=== PATIENT | female | born 1990 | race Caucasian/White ===

== ENCOUNTER 2020-08-04 12:24 | Emergency (ER) | payer OTHER ==
[2020-08-04 12:41] VITALS: BP 124/84; PULSE 59; TEMP 98.5; BMI 29.0
--- NOTE | 2020-08-04 12:51 | PDOC ---
History of Present Illness - General History Source: Patient - History of Present Illness Timing/Duration: reports: other (this am) <Julio Cesar Toussaint - Last Filed: 08/04/20 14:54> <EveliaRoxana - Last Filed: 08/12/20 13:15> - General Chief Complaint: Vaginal Bleeding Stated Complaint: 12 WKS PREGT VAG BLEED Time Seen by Provider: 08/04/20 12:48 Past History - Reproductive History Is Patient Now?: Yes - Psycho-Social/Smoking History Smoking History: Never smoked - Substance Abuse Hx (Audit-C & DAST Scrn) How often the patient has a drink containing alcohol: Never Score: In Men: 4 or > Positive; In Women: 3 or > Positive: 0 Screen Result (Pos requires Nsg. Audit-10AR): Negative In the last yr the pt used illegal drug/Rx for NonMed reason: No Score: Yes response is considered Positive: 0 Screen Result (Positive result requires Nsg. DAST-10): Negative <Julio Cesar Toussaint - Last Filed: 08/04/20 14:54> <Roxana Altamirano - Last Filed: 08/12/20 13:15> - Medical History Allergies/Adverse Reactions: Allergies Allergy/AdvReac Type Severity Reaction Status Date / Time No Known Allergies Allergy Unverified 08/04/20 12:54 Review of Systems - Review of Systems Constitutional: No: Chills, Fever ABD/GI: No: Nausea, Vomiting, Abdominal cramping : No: Dysuria <Julio Cesar Toussaint - Last Filed: 08/04/20 14:54> *Physical Exam - Vital Signs Last Vital Signs Temp Pulse Resp BP Pulse Ox 98.5 F 59 L 16 124/84 100 08/04/20 12:36 08/04/20 12:36 08/04/20 12:36 08/04/20 12:36 08/04/20 12:36 - Physical Exam General Appearance: Yes: Appropriately Dressed. No: Apparent Distress HEENT: positive: Normal Voice Neck: positive: Supple Respiratory/Chest: negative: Respiratory Distress Gastrointestinal/Abdominal: positive: Soft. negative: Tender Musculoskeletal: negative: CVA Tenderness Integumentary: positive: Dry, Warm Neurologic: positive: Fully Oriented, Alert, Normal Mood/Affect <Julio Cesar Toussaint - Last Filed: 08/04/20 14:54> - Vital Signs Last Vital Signs Temp Pulse Resp BP Pulse Ox 98.5 F 59 L 16 124/84 100 08/04/20 12:36 08/04/20 12:36 08/04/20 12:36 08/04/20 12:36 08/04/20 12:36 <Roxana Altamirano - Last Filed: 08/12/20 13:15> ED Treatment Course - ADDITIONAL ORDERS Additional order review: 08/04/20 13:20 Urine Culture - Final Urine - Urine Clean Catch NO GROWTH OBTAINED <Roxana Altamirano - Last Filed: 08/12/20 13:15> Medical Decision Making - Medical Decision Making 08/04/20 12:49 30 yo F, , ~12 weeks by dates, last US 1 month ago, no issues w/ preg so far, f/u at [facility], here w/ minimal vaginal bleed w/ ?clot this am per pt. No acute abd pain, dysuria, n/v/f/c. No trauma see exam Vaginal bleeding in 1st trimester w/ confirmed IUP Stable and well ap -T&S -UA -beta -US 08/04/20 14:55 Ultrasound with over 11 weeks IUP with heart rate documented. Blood type O+. UA w/ no LE or nit, ~300 bianca, will hold off abx and send ucx. Patient stable for discharge to follow-up with her OB <Julio Cesar Toussaint - Last Filed: 08/04/20 14:54> Discharge - Discharge Information Problems reviewed: Yes <Julio Cesar Toussaint - Last Filed: 08/04/20 14:54> <Roxana Altamirano - Last Filed: 08/12/20 13:15> - Discharge Information Clinical Impression/Diagnosis: Threatened Condition: Stable Disposition: HOME - Follow up/Referral Referrals: Gabi Olea [Primary Care Provider] - - Patient Discharge Instructions Patient Printed Discharge Instructions: Threatened Miscarriage Additional Instructions: Your ultrasound shows an over 11 weeks IUP with heart activity documented. Your beta was [phone] Your blood type is O+ Please follow-up with your OB Print Language: WELSH - Post Discharge Activity Work/Back to School Note: Back to Work
[2020-08-04 13:35] LABS: EPI CELLS 10 /uL (0-25.1); HYALINE CASTS 1 /uL (0-3.1); URINE APPEARANCE CLEAR; URINE BACTERIA 301 /uL (0-1359); URINE BILIRUBIN NEGATIVE (NEGATIVE); URINE COLOR YELLOW; URINE GLUCOSE (UA) NEGATIVE (NEGATIVE); URINE KETONE NEGATIVE (NEGATIVE); URINE LEUK ESTERASE NEGATIVE (NEGATIVE); URINE NITRITE NEGATIVE (NEGATIVE); URINE PROTEIN NEGATIVE (NEGATIVE); URINE RBC 13 /uL (0-23.9); URINE UROBILINOGEN 0.2 mg/dL (0.2-1.0); URINE WBC 5 /uL (0-25.8)
--- OUTSIDE RECORDS SUMMARY | 2020-08-04 18:43 | XMS ---
:[address] [facility] Care Team Providers Name Role Phone Ringstad, Elida Unavailable Unavailable Ringstad, Elida Unavailable Unavailable Ringstad, Elida Unavailable Unavailable Ringstad, Elida Unavailable Unavailable Ringstad, Elida Unavailable Unavailable Ringstad, Elida Unavailable Unavailable Ringstad, Elida Unavailable Unavailable Ringstad, Elida Unavailable Unavailable Ringstad, Elida Unavailable Unavailable Ringstad, Elida Unavailable Unavailable Ringstad, Elida Unavailable Unavailable Martinez, Jodi Unavailable Unavailable Martinez, Jodi Unavailable Unavailable Martinez, Jodi Unavailable Unavailable Martinez, Jodi Unavailable Unavailable Martinez, Jodi Unavailable Unavailable Martinez, Jodi Unavailable Unavailable Martinez, Jodi Unavailable Unavailable Martinez, Jodi Unavailable Unavailable Martinez, Jodi Unavailable Unavailable Martinez, Jodi Unavailable Unavailable Grgeg Lee Unavailable [phone] Olea, Gabi C Unavailable Unavailable Olea, C Unavailable Unavailable Olea, C Unavailable Unavailable Olea, C Unavailable Unavailable Olea, C Unavailable Unavailable Olea, C Unavailable Unavailable Olea, C Unavailable Unavailable Olea, C Unavailable Unavailable Olea, C Unavailable Unavailable ED STAFF PHYSICIAN Unavailable Unavailable Rasta Amador DPM Unavailable Unavailable Rasta Amador DPM Unavailable Unavailable Rasta Amador DPM Unavailable Unavailable PETER Pak Unavailable Unavailable Ringstad Unavailable Unavailable Ringstad Unavailable Unavailable Ringstad Unavailable Unavailable Ringstad Unavailable Unavailable Ringstad Unavailable Unavailable Ringstad Unavailable Unavailable Ringstad Unavailable Unavailable Ringstad Unavailable Unavailable Ringstad Unavailable Unavailable Ringstad Unavailable Unavailable Ringstad Unavailable Unavailable CARLOS MACIAS Unavailable Unavailable MD Gisel, MPH Unavailable Unavailable MD Gisel, MPH Unavailable Unavailable MD Gisel, MPH Unavailable Unavailable MD Gisel, MPH Unavailable Unavailable MD Gisel, MPH Unavailable Unavailable ED STAFF PHYSICIAN Unavailable Unavailable Aszalos, Mami Unavailable Unavailable Aszalos, Mami Unavailable Unavailable Aszalos, Mami Unavailable Unavailable Aszalos, Mami Unavailable Unavailable Aszalos, Mami Unavailable Unavailable Aszalos, Mami Unavailable Unavailable Aszalos, Mami Unavailable Unavailable Aszalos, Mami Unavailable Unavailable Aszalos, Mami Unavailable Unavailable Orin Yu MD Unavailable Unavailable Orin Yu MD Unavailable Unavailable Orin Yu MD Unavailable Unavailable Orin Yu MD Unavailable Unavailable Orin Yu MD Unavailable Unavailable Orin Yu MD Unavailable Unavailable Orin Yu MD Unavailable Unavailable Orin Yu MD Unavailable Unavailable Orin Yu MD Unavailable Unavailable Orin Yu MD Unavailable Unavailable Orin Yu MD Unavailable Unavailable Gigi, Orin MD Unavailable Unavailable Gigi, Orin MD Unavailable Unavailable Gigi, Orin MD Unavailable Unavailable Gigi, Orin MD Unavailable Unavailable ZUNASSIGNED Unavailable Unavailable ZUNASSIGNED@, Unavailable Unavailable Re-disclosure Warning The records that you are about to access may contain information from federally- assisted alcohol or drug abuse programs. If such information is present, then the following federally mandated warning applies: This information has been disclosed to you from records protected by federal confidentiality rules (42 CFR part 2). The federal rules prohibit you from making any further disclosure of this information unless further disclosure is expressly permitted by the written consent of the person to whom it pertains or as otherwise permitted by 42 CFR part 2. A general authorization for the release of medical or other information is NOT sufficient for this purpose. The Federal rules restrict any use of the information to criminally investigate or prosecute any alcohol or drug abuse patient.The records that you are about to access may contain highly sensitive health information, the redisclosure of which is protected by Article 27-F of the [facility] Public Health law. If you continue you may haveaccess to information: Regarding HIV / AIDS; Provided by facilities licensed or operated by the [facility] Office of Mental Health; or Provided by the [facility] Office for People With Developmental Disabilities. If such information is present, then the following [facility] mandated warning applies: This information has been disclosed to you from confidential records which are protected by state law. State law prohibits you from making any further disclosure of this information without the specific written consent of the person to whom it pertains, or as otherwise permitted by law. Any unauthorized further disclosure in violation of state law may result in a fine or assisted sentence or both. A general authorization for the release of medical or other information is NOT sufficient authorization for further disclosure. Allergies and Adverse Reactions Type Description Substance Reaction Status Data Source(s ) Propensity to Propensity to Propensity to NEXTG EN ([facility] adverse reactions adverse reactions adverse reactions [facility] Medical (disorder) (disorder) (disorder) Center) Encounters Encounter Providers Location Date Indications Data Source(s ) Attender: [facility] 07/20/2020 SEDA N ([facility] 04:02:[address] [facility] EDT - Center) 07/20/2020 04:02:00 PM EDT Emergency Attender: ED STAFF H 07/18/2020 [facility] PHYSICIANAttender: 06:46:00 PM Medic pr Center STAFF ED STAFF EDT - PHYSICIANAdmitter: 07/18/2020 ED STAFF 10:39:00 PM PHYSICIANReferrer: EDT ZUNASSIGNED Patient discharged. Outpatient Attender: Jodi Maier 07/18/2020 [facility] Arden koehler VelezAdmitter: Joid 05:23:00 PM EDT Medical VelezReferrer: Jodi Martinez OutpatientOFFICE/OUT Attender: [facility] 07/18/2020 [facility] PATIENT VISIT, LARY Batres MD, MPH Hiram 05:23:00 PM EDT ([facility] 07/18/2020 [facility] 05:23:00 PM EDT Medical Center) Outpatient Attender: 07/18/2020 [facility] NONISSIGNEDAdmitter: 05:19:00 PM EDT Medical ZUNASSIGNEDReferrer: Cent er [id number] ZUNASSIGNED@, Outpatient Admitter: [id number] 07/18/2020 [facility] ZUNASSIGNED@,Referre 12:00:00 AM EDT Medical r: [id number] Center ZUNASSIGNED@, Attender: [facility] 07/06/2020 STACI Molina Hiram 11:07:00 AM EDT ([facility] 07/06/2020 [facility] 11:07:00 AM EDT Medical Center) Outpatient Attender: Jodi Maier 06/23/2020 [facility] VelezAdmitter: Jodi 03:57:00 PM EDT Medical VelezReferrer: Jodi Ramos er Martinez OutpatientOFFICE/OUT Attender: [facility]gg [facility] 06/23/2020 NEXTGEN PATIENT VISIT, [facility] 03:57:00 PM EDT ( [facility] 06/23/2020 [facility] 03:57:00 PM EDT Medical Center) Outpatient 06/23/2020 [facility] 09:03:00 AM EDT Medical Center Outpatient 06/23/2020 [facility] 12:00:00 AM EDT Medical Center Attender: [facility] 12/28/2019 [facility] 01:14:00 PM EST ([facility] 12/28/2019 [facility] 01:14:00 PM EST Medical Center) Outpatient Attender: GILBERTO Maier 12/09/2019 [facility] CARLOS 01:08:00 PM EST Medical DANUTAAdmitter: Center GILBERTO CARLOS DANUTAReferrer: Jodi Martinez Outpatient Attender: Jodi Maier 12/07/2019 [facility] VelezAdmitter: Jodi 01:32:00 PM EST Medical VelezReferrer: Jodi Ramos er Martinez OutpatientWell Attender: [facility] 12/07/2019 NEXTGEN Visit, Hiram 01:32:00 PM EST ([facility],18-39years - 12/07/2019 [facility] 01:32:00 PM EST Medical Center) Outpatient 12/07/2019 [facility] 11:18:00 AM EST Medical Center Outpatient 12/07/2019 [facility] 12:00:00 AM EST Medical Center Attender: [facility] 11/30/2019 GRANT Yu MD Hiram 03:35:00 PM EST (11/30/2019 [facility] 03:35:00 PM EST Medical Center[facility] GRANT Yu MD [facility] 03:08:00 PM EST ([facility] 09/20/2019 [facility] 03:08:00 PM EST Medical Center) Outpatient 09/02/2019 [facility] 04:35:00 PM EDT Medical Center Outpatient Attender: Kalin Maier 09/02/2019 [facility] [place] 09:40:00 AM EDT Medical DPMAdmitter: Kalin Hiram [place] DPMReferrer: Kalin Amador DPM OutpatientOFFICE/OUT Attender: Gregg [facility] 09/02/2019 [facility] PATIENT VISIT, [facility] 09:40:00 AM EDT ( 09/02/2019 [facility] 09:40:00 AM EDT Medical Center) Outpatient 09/02/2019 [facility] 12:00:00 AM EDT Medical Center Outpatient 08/24/2019 [facility] 04:18:00 PM EDT Medical Center Outpatient Attender: Jodi Maier 08/24/2019 [facility] Ardenale koehler VelezAdmitter: Jodi 03:22:00 PM EDT Medical VelezReferrer: Jodi Martinez OutpatientOFFICE/OUT Attender: Gabi [facility] 08/24/2019 [facility] PATIENT VISIT, [facility] Center 03:22:00 PM EDT ( 08/24/2019 [facility] 03:22:00 PM EDT Medical Center) Outpatient 08/24/2019 [facility] 12:00:00 AM EDT Medical Center Outpatient 08/17/2019 [facility] 01:35:00 PM EDT Medical Center Outpatient 08/17/2019 [facility] 01:34:00 PM EDT Medical Center Outpatient 08/17/2019 [facility] 12:00:00 AM EDT Medical Center Attender: [facility] 07/15/2019 GRANT Yu MD Hiram 02:21:00 PM EDT ([facility] 07/15/2019 [facility] 02:21:00 PM EDT Medical Center) Attender: Gabi [facility] 07/03/2019 [facility] 10:35:00 AM EDT ([facility] 07/03/2019 [facility] 10:35:00 AM EDT Medical Center) Outpatient 06/29/2019 [facility] 11:50:00 AM EDT Medical Center Outpatient 06/29/2019 [facility] 12:00:00 AM EDT Medical Center Outpatient Attender: PAUL Maier 05/21/2019 [facility] GREEN PAUL 08:54:00 AM EDT [facility] vanesa DAdmitter: PAULDOMINIQUE MILLER DReferrer: PAUL Pak Outpatient Attender: Jodi Maier 05/04/2019 [facility] bakariale VelezAdmitter: Jodi 03:41:00 PM EDT Medical VelezReferrer: Jodi preciado Martinez OutpatientOFFICE/OUT Attender: Gabi Olea [facility] 05/04/2019 [facility] PATIENT VISIT, [facility] Center 03:41:00 PM EDT ( [facility] 05/04/2019 [facility] 03:41:00 PM EDT Medical Center) Outpatient 05/04/2019 [facility] 09:00:00 AM EDT Medical Center Outpatient 05/04/2019 [facility] 12:00:00 AM EDT Medical Center Outpatient 04/27/2019 [facility] 03:44:00 PM EDT Medical Center Outpatient 04/27/2019 [facility] 12:00:00 AM EDT Medical Center Outpatient 04/22/2019 [facility] 11:28:00 AM EDT Medical Center Outpatient 04/22/2019 [facility] 12:00:00 AM EDT Medical Center Attender: [facility] 04/19/2019 [facility] 02:02:00 PM EDT ([facility] 04/19/2019 [facility] 02:02:00 PM EDT Medical Center) Outpatient 04/17/2019 [facility] 11:47:00 AM EDT Medical Center Outpatient 04/17/2019 [facility] 12:00:00 AM EDT Medical Center Outpatient H 04/13/2019 [facility] 04:31:00 PM EDT Medical Center Outpatient 04/13/2019 [facility] 04:28:00 PM EDT Medical Center Outpatient 04/13/2019 [facility] 12:00:00 AM EDT Medical [facility] ST[facility]I PIN[facility] 11:42:00 AM EDT (04/09/2019 [facility] 11:42:00 AM EDT Medical Center) Outpatient Attender: Jodi Maier 04/06/2019 [facility] VelezAdmitter: Jodi 03:10:00 PM EDT Medical VelezReferrer: Jodi Martinez OutpatientOFFICE/OUT Attender: Gabi [facility] 04/06/2019 NEXTGEN PATIENT VISIT, [facility] 03:10:00 PM EDT ( [facility] 04/06/2019 [facility] 03:10:00 PM EDT Medical Center) Outpatient 04/06/2019 [facility] 01:32:00 PM EDT Medical Center Outpatient 04/06/2019 [facility] 12:00:00 AM EDT Medical Center Attender: [facility] 03/18/2019 N EXTGEN Hiram 04:46:00 PM EDT ([facility] 03/18/2019 [facility] 04:46:00 PM EDT Medical Center) Outpatient 03/10/2019 [facility] 02:56:00 PM EDT Medical Center Outpatient Attender: Elida Maier 03/10/2019 [facility] Makidmitter: 10:28:00 AM EDT [facility] RingstadReferrer: Elida Molina OutpatientOFFICE/OUT Attender: [facility] 03/10/2019 [facility] PATIENT VISIT, [facility] 10:28:00 AM EDT ( [facility] 03/10/2019 [facility] 10:28:00 AM EDT Medical Center) Outpatient 03/10/2019 [facility] 12:00:00 AM EDT Medical Center 03/09/2019 [facility] 02:55:00 PM EDT Medical Hiram Medications Medication Brand Start Product Dose Route Administrative Pharm[facility] Indications Reaction Description Data Name Date Form Instructions Instructions Source(s) Cyclobenzap cyclob ORAL complet take 1 NEXTGEN rine enzapr 2020 {tabl ed tablet by ([facility] hydrochlori ine 10 12:00: et} oral rout e 2 Zia de 10 MG mg 00 AM times every Med ical Oral Tablet tablet EST day Hiram ) cyclobenzap rine 10 mg tablet Folic Acid folic .00 ORAL complet take 1 N EXTGEN 0.4 MG Oral acid 2020 {tabl ed tablet by (S aint Tablet 400 12:00: et} oral route Michael hs folic acid mcg 00 AM every day Med ical 400 mcg tablet EST Center) tablet Menthol 0.1 Asperc complet apply NEXTGEN MG/MG elis 2018 ed affected ([facility] Topical Gel Heat 12:00: area bid Erin sephs Aspercreme 10 % 00 AM Medical Heat 10 % topica EDT Center) topical gel l gel Famotidine famoti ORAL complet take 1 NEXTGEN 40 MG Oral dine 2018 {tabl ed tablet by (Sa int Tablet 40 mg 12:00: et} oral route Delmer phs famotidine tablet 00 AM every day a t Medical 40 mg EDT bedtime Center) tablet Tretinoin tretin complet apply by NEXTGEN 0.5 MG/ML oin 2018 L ed topical ([facility] Topical 0.05 % 12:00: route every Zia Cream topica 00 AM day to the Medic al tretinoin l EDT affected Center ) 0.05 % cream area(s) at topical bedtime cream Clindamycin clinda complet apply by NEXTGEN 10 MG/ML mycin 2018 ed topical ([facility] Topical 1 % 12:00: route every Erin sephs Foam topica 00 AM day to the Medica l clindamycin l foam EDT affected Ce nter) 1 % topical area(s) of foam the face after washing with a mild soap Folic Acid folic ORAL complet take 1 N EXTGEN 0.4 MG Oral acid 2018 {tbl} ed tablet by (S aint Tablet 400 12:00: oral route Michael hs folic acid mcg 00 AM every day Med ical 400 mcg tablet EDT Center) tablet medroxyprog Depo-P INTRAM complet 1 ML NEXTGEN esterone rovera 2019 mL USCULA ed medroxyproge ([facility] acetate 150 150 12:00: R sterone [facility] ephs MG/ML mg/mL 00 AM acetate 150 Medic al Injectable intram EDT MG/ML Hiram ) Suspension uscula Injection [Depo-Prove r [Depo-Head Worker ra] suspen a] Depo-Head Worker vickey a 150 mg/mL intramuscul ar suspension Clindamycin clinda complet apply by NEXTGEN 10 MG/ML mycin 2019 ed topical ([facility] Topical 1 % 12:00: route every Erin sephs Foam topica 00 AM day to the Medica l clindamycin l foam EDT affected Ce nter) 1 % topical area(s) of foam the face after washing with a mild soap Ibuprofen ibupro take 1 N EXTGEN 600 MG Oral fen 2019 ed tablet by (Sa int Tablet 600 mg 12:00: oral route 3 J osephs ibuprofen tablet 00 AM times every Medical 600 mg EDT day with Center) tablet food as needed for pain Loratadine lorata .00 ORAL complet take 1 NEXTGEN 10 MG Oral dine 2019 {tabl ed tablet by (Sa int Tablet 10 mg 12:00: et} oral route Delmer phs loratadine tablet 00 AM every day M edical 10 mg EDT Center) tablet Insurance Providers Payer name Policy type Policy ID Covered Covered green party's Policy P melania / Coverage green party ID relationship to Garcia Inf ormation type garcia BRETT [id number] SP [id number] 500 ESSENTIAL PLAN 3 4 O BRETT O [id number] 01 [id number] 500 ESSENTIALS-CO MMERCIAL Problems, Conditions, and Diagnoses Code Display Name Description Problem Type Effective Data Dates Source(s) Z3A.09 9 weeks gestation of 9 WEEKS GESTATION OF Diagnosis 07/18 06:46:00 PM [facility] O20.0 Threatened THREATENED Diagnosis 020 [facility] 06:46:00 PM [facility] O26.851 Spotting SPOTTING Diagnosis 07/18/2020 complicating COMPLICATING 06:46:00 PM Zia , first , FIRST EDT Sc dical trimester TRIMESTER Center N93.9 Abnormal uterine and ABNORMAL UTERINE AND Diagnosis 07/18 [facility] vaginal bleeding, VAGINAL BLEEDING, 05:23:00 PM [facility] unspecified UNSPECIFIED [facility] Medical Hiram Z32.01 Encounter for ENCOUNTER FOR Diagnosis 06/23/2020 test, TEST, 03:57:00 PM [facility] ephs result positive RESULT POSITIVE EDT [facility] M54.5 Low back pain LOW BACK PAIN Diagnosis 12/09/2019 [facility] 01:08:[address] [facility] Z71.89 Other specified OTHER SPECIFIED Diagnosis 12/07/2019 Jana t counseling COUNSELING 01:32:[address] [facility] Z23 Encounter for ENCOUNTER FOR Diagnosis 12/07/2019 [facility] immunization IMMUNIZATION 01:32:[address] [facility] J06.9 Acute upper ACUTE UPPER Diagnosis 12/07/2019 [facility] respiratory RESPIRATORY 01:32:00 PM [facility] infection, INFECTION, EST Medical unspecified UNSPECIFIED Center N91.2 Amenorrhea, AMENORRHEA, Diagnosis 12/07/2019 [facility] unspecified UNSPECIFIED 01:32:[address] [facility] M54.9 Dorsalgia, DORSALGIA, Diagnosis 12/07/2019 [facility] unspecified UNSPECIFIED 01:32:[address] [facility] Z12.4 Encounter for ENCOUNTER FOR Diagnosis 12/07/2019 [facility] screening for SCREENING FOR 01:32:00 PM [facility] malignant neoplasm MALIGNANT NEOPLASM EST Medical of cervix OF CERVIX Center M79.674 Pain in right toe(s) PAIN IN RIGHT TOE(S) Diagnosis 09/02 [facility] 09:40:00 AM [facility] M79.671 Pain in right foot PAIN IN RIGHT FOOT Diagnosis 9 [facility] 09:40:00 AM [facility] Z71.3 Dietary counseling DIETARY COUNSELING Diagnosis 9 [facility] and surveillance AND SURVEILLANCE 03:22:00 PM [facility] Z68.30 Body mass index BODY MASS INDEX Diagnosis 08/24/2019 Jana t (BMI) 30.0-30.9, (BMI) 30.0-30.9, 03:22:00 PM [facility] adult ADULT [facility] L70.9 Acne, unspecified ACNE, UNSPECIFIED Diagnosis 08/24/2019 [facility] 03:22:00 PM [facility] K21.9 Gastro-esophageal GASTRO-ESOPHAGEAL Diagnosis 08/24/2019 [facility] reflux disease REFLUX DISEASE 03:22:00 PM Michael hs without esophagitis WITHOUT ESOPHAGITIS [facility] 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 NERVES AND 08:54:00 AM [facility] AUTONM NERVOUS SYS, EDT Me dical nervous system, UNSP Center unspecified Z30.09 Encounter for other ENCOUNTER FOR OTH Diagnosis 9 general counseling GENERAL CNSL AND 03:10:00 PM Zia and advice on ADVICE ON EDT Medical contraception CONTRACEPTION Center F43.21 Adjustment disorder ADJUSTMENT DISORDER Diagnosis with depressed mood WITH DEPRESSED MOOD 03:10:0 0 PM [facility] Z11.4 Encounter for ENCOUNTER FOR Diagnosis 03/10/2019 screening for human SCREENING FOR HUMAN 10:28:0 0 AM [facility] immunodeficiency IMMUNODEFICIENCY EDT Sc dical virus [HIV] VIRUS Center Z00.01 Encounter for ENCOUNTER FOR Diagnosis 03/10/2019 [facility] general adult GENERAL ADULT 10:28:00 AM [facility] medical examination MEDICAL EXAM W EDT M edical with abnormal ABNORMAL FINDINGS Cent er findings J30.2 Other seasonal OTHER SEASONAL Diagnosis 03/10/2019 [facility] allergic rhinitis ALLERGIC RHINITIS 10:28:00 AM [facility] H93.11 Tinnitus, right ear TINNITUS, RIGHT EAR Diagnosis 10:28:00 AM [facility] Diagnosis NEXTGEN ([facility]) Diagnosis NEXTGEN ([facility]) Diagnosis NEXTGEN ([facility]) Diagnosis [id number] ([facility]) Surgeries/Procedures Procedure Description Date Indications Data Source(s) OFFICE/OUTPATIENT 07/18/2020 [facility] (Ale zeng [facility] VISIT, EST 12:00:00 AM EDT - Medical Ce nter) 07/18/2020 12:00:00 AM EDT OFFICE/OUTPATIENT 06/23/2020 [facility]Ale zeng [facility] VISIT, EST 12:00:00 AM EDT - Medical Ce nter) 06/23/2020 12:00:00 AM EDT URINE TEST 06/23/2020 NEXTGEN ([facility] 12:00:00 AM EDT - Medical Ce nter) 06/23/2020 12:00:00 AM EDT Well Visit, 12/07/2019 [facility] ([facility] Est,18-39years 12:00:00 AM EST - Medical Center) 12/07/2019 12:00:00 AM EST SPECIMEN HANDLING 12/07/2019 [facility] (Ale zeng [facility] 12:00:00 AM EST - Medical Ce nter) 12/07/2019 12:00:00 AM EST URINE TEST 12/07/2019 [facility] ([facility] 12:00:00 AM EST - Medical Ce nter) 12/07/2019 12:00:00 AM EST OFFICE/OUTPATIENT 09/02/2019 NEXTGEN (S aint [facility]ia VISIT, EST 12:00:00 AM EDT - Medical Ce nter) 09/02/2019 12:00:00 AM EDT OFFICE/OUTPATIENT 08/24/2019 NEXTGEN (S aint [facility]ia VISIT, EST 12:00:00 AM EDT - Medical Ce nter) 08/24/2019 12:00:00 AM EDT OFFICE/OUTPATIENT 05/04/2019 NEXTGEN (S aint [facility]ia VISIT, EST 12:00:00 AM EDT - Medical Ce nter) 05/04/2019 12:00:00 AM EDT OFFICE/OUTPATIENT 04/06/2019 NEXTGEN (S aint [facility] VISIT, EST 12:00:00 AM EDT - Medical Ce nter) 04/06/2019 12:00:00 AM EDT OFFICE/OUTPATIENT 03/10/2019 NEXTGEN (S aint [facility]ia VISIT, NEW 12:00:00 AM EDT - Medical Ce nter) 03/10/2019 12:00:00 AM EDT Results ID Date Data Source [id number] 07/18/2020 08:15:00 PM EDT [facility] 0400 Name Value Range Interpretation Description Data Sup porting Code Source(s) Document(s ) Hemoglobin 12.3-16. <content [facility] [Mass/volume] in 0 styleCode="Bold Zia Blood ">Hemoglobin Medical </content>13.4 Center G/DL<content styleCode="Ital ics"> (12.3-16.0 G/DL)</content> Erythrocytes 4.0-5.1 <content [facility] [#/volume] in styleCode="Bold Zia Blood by ">Red Blood Medical Automated count Cell Count Center </content>4.42 MCUMM<content styleCode="Ital ics"> (4.0-5.1 MCUMM)</content > Leukocytes 4.4-11.0 <content [facility] [#/volume] in styleCode="Bold Zia Blood by ">White Blood Medical Automated count Cell Count Center </content>10.56 KCUMM<content styleCode="Ital ics"> (4.4-11.0 KCUMM)</content > Erythrocyte mean 80.0-100 <content [facility] corpuscular .0 styleCode="Bold Zia volume [Entitic ">Mean Medical volume] by Corpuscular Center Automated count Volume </content>89.6 FL<content styleCode="Ital ics"> (80.0-100.0 FL)</content> Erythrocyte mean 26.0-34. <content [facility] corpuscular 0 styleCode="Bold Zia hemoglobin ">Mean Medical [Entitic mass] Corposcular Center by Automated Hemoglobin count </content>30.3 PG<content styleCode="Ital ics"> (26.0-34.0 PG)</content> Hematocrit 36.0-46. <content [facility] [Volume 0 styleCode="Bold Zia Fraction] of ">Hematocrit Medical Blood by </content>39.6 Center Automated count %<content styleCode="Ital ics"> (36.0-46.0 %)</content> Erythrocyte mean 32.0-37. <content [facility] corpuscular 0 styleCode="Bold Zia hemoglobin ">Mean Corpus. Medical concentration Hgb Center [Mass/volume] by Concentration Automated count (MCHC) </content>33.8 G/DL<content styleCode="Ital ics"> (32.0-37.0 G/DL)</content> Platelet mean 8.0-11.0 <content Saint volume [Entitic styleCode="Bold Zia volume] in Blood ">Mean Platelet Medical by Automated Volume Center count </content>9.9 FL<content styleCode="Ital ics"> (8.0-11.0 FL)</content> Platelets 130-400 <content Saint [#/volume] in styleCode="Bold Zia Blood by ">Platelet Medical Automated count Count Center </content>381 KCUMM<content styleCode="Ital ics"> (130-400 KCUMM)</content > UNK 0 <content Saint styleCode="Bold Zia ">Nucleated Red Medical Blood Cell Center </content>0.0 /100<content styleCode="Ital ics"> (0 /100)</content> Erythrocyte 11.5-14. <content Saint distribution 5 styleCode="Bold Zia width [Ratio] by ">Red Cell Medical Automated count Distribution Center Width </content>12.0 %<content styleCode="Ital ics"> (11.5-14.5 %)</content> UNK 0.0 <content Saint styleCode="Bold Zia ">Nucleated Red Medical Blood Cell Center Count </content>0.00 KCUMM<content styleCode="Ital ics"> (0.0 KCUMM)</content > ID Date Data Source GFR(Creatinine).[id number] 07/18/2020 08:15:00 PM EDT [facility] 0-0400 Name Value Range Interpretation Code Description Data Edilia rce(s) Supporting Document(s ) UNK > 60 <content [facility] styleCode="Bold"> Medical Cent er EGFR </content>198 GFR<content styleCode="Italic s"> (> 60 GFR)</content> ID Date Data Source BMP.[id number] 07/18/2020 08:15:00 PM EDT [facility] Name Value Range Interpretation Description Data Sup porting Code Source(s) Document(s ) Sodium 137-145 Below low normal <content Saint [Moles/volume] styleCode="Eufemia Zia in Serum or d">Sodium Medical Plasma </content>133 Center MEQ/L L<content styleCode="Khadijah lics"> (137-145 MEQ/L)</conten t> Chloride 98-107 <content Saint [Moles/volume] styleCode="Eufemia Zia in Serum or d">Chloride Medical Plasma </content>102 Center MEQ/L<content styleCode="Khadijah lics"> (98-107 MEQ/L)</conten t> UNK 7-17 <content Saint styleCode="Eufemia Zia d">BUN Medical </content>8 Center MG/DL<content styleCode="Khadijah lics"> (7-17 MG/DL)</conten t> Carbon 22-30 <content Saint dioxide, total styleCode="Eufemia Zia [Moles/volume] d">Carbon Medical in Serum or Dioxide Center Plasma </content>22 MEQ/L<content styleCode="Khadijah lics"> (22-30 MEQ/L)</conten t> Potassium 3.5-5.3 <content Saint [Moles/volume] styleCode="Eufemia Marcelos in Serum or d">Potassium Medical Plasma </content>4.3 Center MEQ/L<content styleCode="Khadijah lics"> (3.5-5.3 MEQ/L)</conten t> Calcium 8.4-10.2 <content Saint [Mass/volume] styleCode="Eufemia Marcelos in Serum or d">Calcium Medical Plasma </content>9.8 Center MG/DL<content styleCode="Khadijah lics"> (8.4-10.2 MG/DL)</conten t> Creatinine 0.5-1.3 Below low normal <content Saint [Mass/volume] styleCode="Eufemia Lizarraga in Serum or d">Creatinine Medical Plasma </content>0.4 Center MG/DL L<content styleCode="Khadijah lics"> (0.5-1.3 MG/DL)</conten t> UNK > 60 <content Saint styleCode="Eufemia Lizarraga d">EGFR Medical </content>198 Center GFR<content styleCode="Khadijah lics"> (> 60 GFR)</content> Glucose 74-106 <content Saint [Mass/volume] styleCode="Eufemia Lizarraga in Serum or d">Glucose Medical Plasma </content>87 Center MG/DL<content styleCode="Khadijah lics"> (74-106 MG/DL)</conten t> ID Date Data Source [id number] 06/12/2020 10:02:00 AM EDT [facility] Name Value Range Interpretation Code Description Data Edilia rce(s) Supporting Document(s ) SARS-COV-2 [facility] RESP [facility]ostics QL MINDY+PROBE This lab was ordered by [facility] and reported by [facility]. ID Date Data Source Urinalysis.[id number] 03/12/2019 09:16:00 AM EDT Juan Pablo [facility] 0 Name Value Range Interpretation Description Data Sup porting Code Source(s) Document(s ) UNK CLEAR <content Saint styleCode="Eufemia Zia d">Urine Medical Clarity Center </content>ELIZA R <content styleCode="Khadijah lics"> (CLEAR )</content> Color of Urine YELLOW <content Saint styleCode="Eufemia Zia d">Color, Medical Urine Center </content>YELL OW <content styleCode="Khadijah lics"> (YELLOW )</content> Glucose NEGATIVE <content Saint [Mass/volume] styleCode="Eufemia Zia in Urine by d">Urine Medical Test strip Glucose Center </content>NEGA TIVE MG/DL<content styleCode="Khadijah lics"> (NEGATIVE MG/DL)</conten t> UNK NEGATIVE <content Saint styleCode="Eufemia Zia d">Urine Medical Bilirubin Center </content>NEGA TIVE <content styleCode="Khadijah lics"> (NEGATIVE )</content> Specific 1.015-1.02 <content Saint gravity of 5 styleCode="Eufemia Zia Urine by Test d">Urine Medical strip Specific Center [place] </content>1.02 0 <content styleCode="Khadijah lics"> (1.015-1.025 )</content> Ketones NEGATIVE <content Saint [Mass/volume] styleCode="Eufemia Zia in Urine by d">Urine Medical Test strip Ketone Center </content>NEGA TIVE MG/DL<content styleCode="Khadijah lics"> (NEGATIVE MG/DL)</conten t> Urobilinogen 0.2-1.0 <content Saint [Units/volume] styleCode="Eufemia Zia in Urine by d">Urine Medical Test strip Urobilinogen Center </content>0.2 MG/DL<content styleCode="Khadijah lics"> (0.2-1.0 MG/DL)</conten t> Hemoglobin NEGATIVE <content Saint [Presence] in styleCode="Eufemia Zia Urine by Test d">Urine Blood Medical strip </content>NEGA Center TIVE <content styleCode="Khadijah lics"> (NEGATIVE )</content> Protein NEGATIVE <content Saint [Mass/volume] styleCode="Eufemia Lizarraga in Urine by d">Urine Medical Test strip Protein Center </content>NEGA TIVE MG/DL<content styleCode="Khadijah lics"> (NEGATIVE MG/DL)</conten t> pH of Urine by 4.5-8.0 <content Saint Test strip styleCode="Eufemia Marcelos d">Urine pH Medical </content>6.0 Center <content styleCode="Khadijah lics"> (4.5-8.0 )</content> Nitrite NEGATIVE <content Saint [Presence] in styleCode="Eufemia Lizarraga Urine by Test d">Urine Medical strip Nitrite Center </content>NEGA TIVE <content styleCode="Khadijah lics"> (NEGATIVE )</content> Leukocyte NEGATIVE <content Saint esterase styleCode="Eufemia Lizarraga [Presence] in d">Urine Medical Urine by Test Leukocyte Center strip </content>NEGA TIVE <content styleCode="Khadijah lics"> (NEGATIVE )</content> ID Date Data Source Liver 03/12/2019 09:16:00 AM EDT [facility] Profile.[id number] Name Value Range Interpretation Description Data Sup porting Code Source(s) Document(s ) Bilirubin.total 0.2-1.3 <content Saint [Mass/volume] in styleCode="Bold"> Michael hs Serum or Plasma Bilirubin Total Medical </content>0.5 Center MG/DL<content styleCode="Italic s"> (0.2-1.3 MG/DL)</content> Alanine 7-30 Above high <content Saint aminotransferase normal styleCode="Bold"> Michael hs [Enzymatic Alanine Medical activity/volume] Aminotransferase Center in Serum or Plasma (ALT) </content>45 IU/L H<content styleCode="Italic s"> (7-30 IU/L)</content> Albumin 3.5-5.0 <content Saint [Mass/volume] in styleCode="Bold"> Michael hs Serum or Plasma Albumin Medical </content>4.6 Center G/DL<content styleCode="Italic s"> (3.5-5.0 G/DL)</content> Aspartate 14-36 <content Saint aminotransferase styleCode="Bold"> Michael hs [Enzymatic Aspartate Medical activity/volume] Aminotransferase Center in Serum or Plasma (AST) </content>34 IU/L<content styleCode="Italic s"> (14-36 IU/L)</content> Alkaline 38-126 <content Saint phosphatase styleCode="Bold"> Zia [Enzymatic Alkaline Medical activity/volume] Phosphatase (ALP) Cente r in Serum or Plasma </content>80 IU/L<content styleCode="Italic s"> (38-126 IU/L)</content> ID Date Data Source LIPID.[id number] 03/12/2019 09:16:00 AM EDT [facility] Name Value Range Interpretation Description Data Sup porting Code Source(s) Document(s ) Triglyceride < 150 Above high normal <content Saint [Mass/volume] in styleCode="Eufemia Marcelos Serum or Plasma d">Triglycerid [facility] </content>163 MG/DL H<content styleCode="Khadijah lics"> (< 150 MG/DL)</conten t> Cholesterol -<200 <content Saint [Mass/volume] in styleCode="Eufemia Marcelos Serum or Plasma d">Cholesterol Medical </content>172 Center MG/DL<content styleCode="Khadijah lics"> (-<200 MG/DL)</conten t> UNK > 60 Below low normal <content Saint styleCode="Eufemia Zia d">HDL- Medical Cholesterol Center </content>34 MG/DL L<content styleCode="Khadijah lics"> (> 60 MG/DL)</conten t> UNK < 100 Above high normal <content Saint styleCode="Eufemia Zia d">LDL-Cholest Medical liza Center </content>105 MG/DL H<content styleCode="Khadijah lics"> (< 100 MG/DL)</conten t> ID Date Data Source Hormones.[id number] 03/12/2019 09:16:00 AM EDT Jana alvarez [facility] Center Name Value Range Interpretation Description Data Sup porting Code Source(s) Document(s ) Thyrotropin 0.465-4. <content Saint [Units/volume] 68 styleCode="Eufemia Zia in Serum or d">Thyroid Medical Plasma by Stimulating Center Detection Hormone limit <= 0.05 </content>2.21 mIU/L MIU/L<content styleCode="Khadijah lics"> (0.465-4.68 MIU/L)</conten t> ID Date Data Source HematologyRou.[id number] 03/12/2019 09:16:00 AM EDT Juan Pablo [facility] 0400 Name Value Range Interpretation Description Data Sup porting Code Source(s) Document(s ) Erythrocytes 4.0-5.1 <content Saint [#/volume] in styleCode="Bold Zia Blood by ">Red Blood Medical Automated count Cell Count Center </content>4.22 MCUMM<content styleCode="Ital ics"> (4.0-5.1 MCUMM)</content > Leukocytes 4.4-11.0 <content Saint [#/volume] in styleCode="Bold Zia Blood by ">White Blood Medical Automated count Cell Count Center </content>5.94 KCUMM<content styleCode="Ital ics"> (4.4-11.0 KCUMM)</content > Hemoglobin 12.3-16. <content Saint [Mass/volume] in 0 styleCode="Bold Zia Blood ">Hemoglobin Medical </content>12.8 Center G/DL<content styleCode="Ital ics"> (12.3-16.0 G/DL)</content> Erythrocyte mean 26.0-34. <content Saint corpuscular 0 styleCode="Bold Zia hemoglobin ">Mean Medical [Entitic mass] Corposcular Center by Automated Hemoglobin count </content>30.3 PG<content styleCode="Ital ics"> (26.0-34.0 PG)</content> Erythrocyte mean 80.0-100 <content Saint corpuscular .0 styleCode="Bold Zia volume [Entitic ">Mean Medical volume] by Corpuscular Center Automated count Volume </content>93.1 FL<content styleCode="Ital ics"> (80.0-100.0 FL)</content> Erythrocyte mean 32.0-37. <content Saint corpuscular 0 styleCode="Bold Zia hemoglobin ">Mean Corpus. Medical concentration Hgb Center [Mass/volume] by Concentration Automated count (MCHC) </content>32.6 G/DL<content styleCode="Ital ics"> (32.0-37.0 G/DL)</content> Hematocrit 36.0-46. <content Saint [Volume 0 styleCode="Bold Zia Fraction] of ">Hematocrit Medical Blood by </content>39.3 Center Automated count %<content styleCode="Ital ics"> (36.0-46.0 %)</content> Platelet mean 8.0-11.0 <content Saint volume [Entitic styleCode="Bold Zia volume] in Blood ">Mean Platelet Medical by Automated Volume Center count </content>10.8 FL<content styleCode="Ital ics"> (8.0-11.0 FL)</content> Erythrocyte 11.5-14. <content Saint distribution 5 styleCode="Bold Zia width [Ratio] by ">Red Cell Medical Automated count Distribution Center Width </content>12.5 %<content styleCode="Ital ics"> (11.5-14.5 %)</content> Platelets 130-400 <content Saint [#/volume] in styleCode="Bold Zia Blood by ">Platelet Medical Automated count Count Center </content>373 KCUMM<content styleCode="Ital ics"> (130-400 KCUMM)</content > UNK 0.0 <content Saint styleCode="Bold Zia ">Nucleated Red Medical Blood Cell Center Count </content>0.00 KCUMM<content styleCode="Ital ics"> (0.0 KCUMM)</content > UNK 0 <content Saint styleCode="Bold Zia ">Nucleated Red Medical Blood Cell Center </content>0.0 /100<content styleCode="Ital ics"> (0 /100)</content> ID Date Data Source GFR(Creatinine).[id number] 03/12/2019 09:16:00 AM EDT [facility] 0-0400 Name Value Range Interpretation Code Description Data Edilia rce(s) Supporting Document(s ) UNK > 60 <content Saint [facility] styleCode="Bold"> Medical Cent er EGFR </content>126 GFR<content styleCode="Italic s"> (> 60 GFR)</content> ID Date Data Source ChemistrySpecia.[id number] 03/12/2019 09:16:00 AM EDT [facility] 0-0400 Name Value Range Interpretation Code Description Data Supporting Source(s) Document(s ) Folate > 3.0 <content [facility] [Mass/volum styleCode="Bold Medical e] in Serum ">Folic Acid Center or Plasma </content>> 20.0 NG/ML<content styleCode="Ital ics"> (> 3.0 NG/ML)</content > ID Date Data Source [facility].[id number] 03/12/2019 09:16:00 AM EDT [facility] -0400 Name Value Range Interpretation Description Data Sup porting Code Source(s) Document(s ) UNK >= 1.0 <content [facility] styleCode="Bold Medical ">AG Ratio Center </content>1.4 <content styleCode="Ital ics"> (>= 1.0 )</content> Folate > 3.0 <content Saint Zia [Mass/volum styleCode="Bold Medical e] in Serum ">Folic Acid Center or Plasma </content>> 20.0 NG/ML<content styleCode="Ital ics"> (> 3.0 NG/ML)</content > Protein 6.3-8.2 <content Saint Zia [Mass/volum styleCode="Bold Medical e] in Serum ">Total Protein Center or Plasma </content>7.9 G/DL<content styleCode="Ital ics"> (6.3-8.2 G/DL)</content> UNK 4.2-5.8 <content [facility] styleCode="Bold Medical ">Hemoglobin Center A1C </content>5.4 %<content styleCode="Ital ics"> (4.2-5.8 %)</content> UNK 2.3-3.5 <content Saint Zia styleCode="Bold Medical ">Globulin Center </content>3.3 G/DL<content styleCode="Ital ics"> (2.3-3.5 G/DL)</content> ID Date Data Source [facility].[id number] 03/12/2019 09:16:00 AM EDT [facility] Center Name Value Range Interpretation Description Data Sup porting Code Source(s) Document(s ) Sodium 137-145 <content Saint [Moles/volume] in styleCode="Bold"> Delmer phs Serum or Plasma Sodium Medical </content>142 Center MEQ/L<content styleCode="Italic s"> (137-145 MEQ/L)</content> Carbon dioxide, 22-30 <content Saint total styleCode="Bold"> Zia [Moles/volume] in Carbon Dioxide Medical Serum or Plasma </content>26 Center MEQ/L<content styleCode="Italic s"> (22-30 MEQ/L)</content> Creatinine 0.5-1.3 <content Saint [Mass/volume] in styleCode="Bold"> Michael hs Serum or Plasma Creatinine Medical </content>0.6 Center MG/DL<content styleCode="Italic s"> (0.5-1.3 MG/DL)</content> UNK 7-17 <content Saint styleCode="Bold"> Zia BUN </content>11 Medical MG/DL<content Center styleCode="Italic s"> (7-17 MG/DL)</content> Potassium 3.5-5.3 <content Saint [Moles/volume] in styleCode="Bold"> Delmer phs Serum or Plasma Potassium Medical </content>4.2 Center MEQ/L<content styleCode="Italic s"> (3.5-5.3 MEQ/L)</content> Chloride 98-107 <content Saint [Moles/volume] in styleCode="Bold"> Delmer phs Serum or Plasma Chloride Medical </content>103 Center MEQ/L<content styleCode="Italic s"> (98-107 MEQ/L)</content> Alanine 7-30 Above high <content Saint aminotransferase normal styleCode="Bold"> Michael hs [Enzymatic Alanine Medical activity/volume] Aminotransferase Center in Serum or Plasma (ALT) </content>45 IU/L H<content styleCode="Italic s"> (7-30 IU/L)</content> Calcium 8.4-10. <content [facility] [Mass/volume] in 2 styleCode="Bold"> Michael hs Serum or Plasma Calcium Medical </content>9.9 Center MG/DL<content styleCode="Italic s"> (8.4-10.2 MG/DL)</content> Glucose 74-106 <content Saint [Mass/volume] in styleCode="Bold"> Michael hs Serum or Plasma Glucose Medical </content>88 Center MG/DL<content styleCode="Italic s"> (74-106 MG/DL)</content> Aspartate 14-36 <content [facility] aminotransferase styleCode="Bold"> Michael hs [Enzymatic Aspartate Medical activity/volume] Aminotransferase Center in Serum or Plasma (AST) </content>34 IU/L<content styleCode="Italic s"> (14-36 IU/L)</content> UNK > 60 <content Saint styleCode="Bold"> Zia EGFR Medical </content>126 Center GFR<content styleCode="Italic s"> (> 60 GFR)</content> Alkaline 38-126 <content Saint phosphatase styleCode="Bold"> Zia [Enzymatic Alkaline Medical activity/volume] Phosphatase (ALP) Cente r in Serum or Plasma </content>80 IU/L<content styleCode="Italic s"> (38-126 IU/L)</content> Albumin 3.5-5.0 <content Saint [Mass/volume] in styleCode="Bold"> Michael hs Serum or Plasma Albumin Medical </content>4.6 Center G/DL<content styleCode="Italic s"> (3.5-5.0 G/DL)</content> Bilirubin.total 0.2-1.3 <content Saint [Mass/volume] in styleCode="Bold"> Michael hs Serum or Plasma Bilirubin Total Medical </content>0.5 Center MG/DL<content styleCode="Italic s"> (0.2-1.3 MG/DL)</content> Procedure Social History Code Duration Value Status Description Data Source(s ) Smoking 07/18/2020 Denies Ever completed Denies Ever [facility] 09:01:00 PM EDT Smoked Smoked Medical C enter Smoking 07/18/2020 Denies Ever completed Denies Ever [facility] 08:56:00 PM EDT Smoked Smoked Medical C enter Smoking 07/18/2020 Denies Ever completed Denies Ever [facility] 06:58:00 PM EDT Smoked Smoked Medical C enter Caffeine Use 07/18/2020 completed NEXTGEN (Juan Pablo nt Details 12:00:00 AM EDT [facility]) 07/18/2020 Current completed Current NEXTGEN ([facility] 12:00:00 AM EDT non-smoker non-smoker [facility]) Smoking 07/18/2020 Unknown if completed Unknown if ever NEXTGEN ( [facility] 12:00:00 AM EDT ever smoked smoked [facility]) Caffeine Use 12/28/2019 completed NEXTGEN (Juan Pablo nt Details 12:00:00 AM EST [facility]) Alcohol Use completed NEXTGEN (Jana t Details [facility]) Smoking Unknown if completed Unknown if ever [facility] ever smoked smoked Medical Cente r Vital Signs ID Date Data Source UNK Name Value Range Interpretation Code Description Data Source(s) Body weight 70.212480 kg 70.601832 kg [facility] Measured Medical Center Body temperature 36.929344 36.310700 Antonella [facility] Respiratory rate 18 /min 18 /min [facility] Oxygen saturation 100 % 100 % [facility] in Arterial blood [facility] Center by Pulse oximetry Heart rate 72 /min 72 /min [facility] Body height 160.363455 160.588819 cm [facility] cm Medical Center Diastolic blood 77 mm[Hg] 77 mm[Hg] Saint [facility] pressure Medical Center Systolic blood 126 mm[Hg] 126 mm[Hg] [facility] pressure Medical Center Body mass index 27.3 kg/m2 27.3 kg/m2 Saint Her [facility] (BMI) [Ratio] Medical [address] Oxygen saturation 99 % 99 % NEXTGEN ([facility] in Arterial blood [facility] by Pulse oximetry Center) Body mass index 26.99 kg/m2 Overweight 26.99 kg/m2 NEXTGEN ([facility] (BMI) [Ratio] [facility]) Respiratory rate 20 /min 20 /min [employer] ([facility]) Body temperature 36.44 Antonella 36.44 Antonella [employer] ([facility]) Heart rate 62 /min 62 /min [facility] ([facility]) Diastolic blood 69 mm[Hg] 69 mm[Hg] [facility]EXTGEN ( [facility]) Systolic blood 113 mm[Hg] 113 mm[Hg] [employer] ([facility]) Body weight 70.216 kg 70.216 kg [employer] ([facility]) Body height 161.29 cm 161.29 cm [facility] ([facility]) Oxygen saturation 97 % 97 % [facility] ([facility] in Arterial blood [facility] by Pulse oximetry Center) Body mass index 26.68 kg/m2 Overweight 26.68 kg/m2 [facility] ([facility] (BMI) [Ratio] [facility]) Respiratory rate 20 /min 20 /min [employer] ([facility]) Body temperature 36.78 Antonella 36.78 Antonella [employer] ([facility]) Heart rate 72 /min 72 /min [employer] ([facility]) Diastolic blood 79 mm[Hg] 79 mm[Hg] [employer] ( [facility] pressure [facility]) Systolic blood 120 mm[Hg] 120 mm[Hg] [employer] ([facility]) Body weight 69.400 kg 69.400 kg [employer] ([facility]) Body height 161.29 cm 161.29 cm [facility] ([facility]) Oxygen saturation 98 % 98 % [facility] ([facility] in Arterial [facility] by Pulse oximetry Center) Body mass index 26.47 kg/m2 Overweight 26.47 kg/m2 [facility] ([facility] (BMI) [Ratio] [facility]) Respiratory rate 20 /min 20 /min [facility] ([facility]) Body temperature 36.67 Antonella 36.67 Antonella [employer] ([facility]) Heart rate 91 /min 91 /min [facility] ([facility]) Diastolic blood 77 mm[Hg] 77 mm[Hg] [facility] ( [facility] pressure [facility]) Systolic blood 125 mm[Hg] 125 mm[Hg] [facility] (S aint pressure [facility]) Body weight 68.855 kg 68.855 kg [facility] ([facility]) Body height 161.29 cm 161.29 cm [facility] ([facility]) Respiratory rate 20 /min 20 /min [facility] ([facility]) Body temperature 36.72 Antonella 36.72 Antonella [facility] ([facility]) Heart rate 87 /min 87 /min [facility] ([facility]) Diastolic blood 86 mm[Hg] 86 mm[Hg] [employer] ( [facility]) Systolic blood 134 mm[Hg] 134 mm[Hg] [facility] (S nt [facility]) Body weight 71.305 kg 71.305 kg [facility] ([facility]) Body surface area 1.75 m2 1.75 m2 [facility] ([facility]) Body mass index 30.97 kg/m2 Overweight 30.97 kg/m2 [facility] ([facility] (BMI) [Ratio] [facility]) Respiratory rate 20 /min 20 /min [facility] ([facility]) Body temperature 37.06 Antonella 37.06 Antonella [facility] ([facility]) Heart rate 77 /min 77 /min [employer] ([facility]) Diastolic blood 86 mm[Hg] 86 mm[Hg] [facility] ( [facility] pressure [facility]) Systolic blood 133 mm[Hg] 133 mm[Hg] [employer] (S aint pressure [facility]) Body weight 71.940 kg 71.940 kg [facility] Body height 152.40 cm 152.40 cm [facility] ([facility]) Oxygen saturation 99 % 99 % [employer] ([facility] in Arterial blood [facility] by Pulse oximetry Center) Body mass index 30.86 kg/m2 Overweight 30.86 kg/m2 [facility] ([facility] (BMI) [Ratio] [facility]) Respiratory rate 17 /min 17 /min [facility] ([facility]) Body temperature 36.72 Antonella 36.72 Antonella [facility] ([facility]) Heart rate 81 /min 81 /min [facility] ([facility]) Diastolic blood 83 mm[Hg] 83 mm[Hg] [facility]EXTGEN ( [facility]) Systolic blood 121 mm[Hg] 121 mm[Hg] [facility] (S [facility]) Body weight 71.668 kg 71.668 kg [employer] ([facility]) Body height 152.40 cm 152.40 cm [facility] ([facility]) Oxygen saturation 98 % 98 % [facility] ([facility] in Arterial blood [facility] by Pulse oximetry Center) Body mass index 30.97 kg/m2 Overweight 30.97 kg/m2 [facility] ([facility] (BMI) [Ratio] [facility]) Respiratory rate 19 /min 19 /min [facility] ([facility]) Body temperature 36.39 Antonella 36.39 Antonella [employer] ([facility] [facility]) Heart rate 101 /min 101 /min [facility] ([facility]) Diastolic blood 74 mm[Hg] 74 mm[Hg] [facility] ( [facility]) Systolic blood 123 mm[Hg] 123 mm[Hg] [facility] ([facility]) Body weight 71.940 kg 71.940 kg [employer] ([facility]) Body height 152.40 cm 152.40 cm [employer] ([facility]) Oxygen saturation 98 % 98 % [facility] ([facility] in Arterial blood [facility] by Pulse oxim[facility]) Body mass index 30.58 kg/m2 Overweight 30.58 kg/m2 [facility] ([facility] (BMI) [Ratio] [facility]) Respiratory rate 20 /min 20 /min [employer] ([facility]) Body temperature 37.28 Antonella 37.28 Antonella [employer] ([facility]) Heart rate 79 /min 79 /min [facility] ([facility]) Diastolic blood 84 mm[Hg] 84 mm[Hg] [facility] ( [facility]) Systolic blood 125 mm[Hg] 125 mm[Hg] NEXT[facility] (S aint pressure [facility]) Body weight 71.033 kg 71.033 kg [facility] ([facility] t [facility]) Body height 152.40 cm 152.40 cm [facility] ([facility]) Patient Treatment Plan of Care Planned Activity Planned Date Details Description Data Source (s) Folic Acid 0.4 MG Oral Tablet 12/07/2019 [facility] ([facility] 12[facility]) Cyclobenzaprine hydrochloride 12/07/2019 [facility] ([facility] 10 MG Oral Tablet 12:00:00 AM [facility]) Tretinoin 0.5 MG/ML Topical 08/24/2019 [facility] ([facility] Cream 12:00:00 AM [facility]) Menthol 0.1 MG/MG Topical Gel 08/24/2019 [facility] ([facility] 12:[facility]:00 AM [facility]) Famotidine 40 MG Oral Tablet 08/24/2019 [facility] ([facility] 12:[facility]:00 AM [facility]) Clindamycin 10 MG/ML Topical 05/04/2019 [facility] ([facility] Foam 12:00:00 AM [facility]) Folic Acid 0.4 MG Oral Tablet 05/04/2019 [facility] ([facility] 12:[facility]:00 AM [facility]) Clindamycin 10 MG/ML Topical 04/09/2019 [facility] ([facility] Foam 12:00:00 AM [facility]) medroxyprogesterone acetate 04/09/2019 [facility] ([facility] 150 MG/ML Injectable 12:00:00 AM [facility] Medical Suspension [Depo-Provera] Ce nter) Ibuprofen 600 MG Oral Tablet 04/06/2019 [facility] ([facility] 12:00:00 AM [facility]) Loratadine 10 MG Oral Tablet 03/10/2019 [facility] ([facility] 12:00:00 AM [facility])
== END 2020-08-04 15:02 | disposition home or self-care (01) ==
LOC: JER 12:24
DX: O20.0 Threatened abortion (principal)
CPT/HCPCS: 36415; 76801-TC; 81003; 84702; 86850; 86900; 86901; 87086; 99284-25

== ENCOUNTER 2021-02-19 12:25 | Inpatient (IN) | payer OTHER ==
[2021-02-19] MEDS ORDERED: BENZOCAINE 20% 57 GM BOTTLE TP PRN (15:20)
[2021-02-19] MEDS ORDERED: METHYLERGONOVINE MALEATE 0.2 MG/1 ML AMP IM PRN (15:20)
[2021-02-19] MEDS ORDERED: BUTORPHANOL TARTRATE 1 MG/ML VIAL IVPB PRN (15:20)
[2021-02-19] MEDS ORDERED: BENZOCAINE 28 GM HEMORRHOIDAL OINTMENT PR PRN (15:20)
[2021-02-19] MEDS ORDERED: WITCH HAZEL 50% (TUCKS) 40 PAD/JAR PAD TP PRN (15:20)
[2021-02-19] MEDS ORDERED: IBUPROFEN 800 MG/8 ML IJ IVPB PRN (15:20)
[2021-02-19] MEDS: ELECTROLYTE-148 SOLN 1,000 ML IV SCH ×2 (15:40→20:00)
[2021-02-19 16:18] LABS: BASO % 0.2 % (0-2.0); EOS % 0.6 % (0-4.5); HEMOGLOBIN 12.2 GM/dL (10.7-15.3); LYMPH % 13.2 % (8-40); MCH 30.6 pg (25.7-33.7); MCHC 33.7 g/dl (32.0-36.0); MEAN CELL VOLUME 90.8 fl (80-96); MONO % 4.1 % (3.8-10.2); NEUT % 81.9 % (42.8-82.8); PLATELET COUNT 208 K/MM3 (134-434); RBC 3.97 M/mm3 (3.60-5.2); RDW 13.9 % (11.6-15.6); WHITE BLOOD COUNT 9.9 K/mm3 (4.0-10.0)
[2021-02-19 16:27] VITALS: BMI 32.4
[2021-02-19 16:27] LABS: INR 0.94 (0.83-1.09); PROTHROMBIN TIME (PATIENT) 11.4 SEC (9.7-13.0)
[2021-02-19 16:29] LABS: ACTIVATED PTT 24.3 SECONDS (25.2-36.5)
[2021-02-19 16:36] LABS: CALCIUM 8.5 mg/dL (8.5-10.1)
[2021-02-19 16:37] LABS: BLOOD UREA NITROGEN 8.2 mg/dL (7-18)
[2021-02-19 16:40] LABS: CREATININE 0.5 mg/dL (0.55-1.3)
[2021-02-19] MEDS ORDERED: ePHEDrine SULFATE 50 MG/1 ML AMPULE ONE (21:45)
[2021-02-19] MEDS ORDERED: morphine SULFATE/PF 1 MG/2 ML (2cc Syringe - QUVA) ONE (21:45)
[2021-02-19] MEDS ORDERED: ONDANSETRON 4 MG/2 ML VIAL ONE (21:47)
[2021-02-19] MEDS ORDERED: ceFAZolin SODIUM 1 GM VIAL ONE (21:47)
[2021-02-19] MEDS ORDERED: KETOROLAC TROMETHAMINE 30 MG/1 ML VIAL ONE (21:47)
[2021-02-19] MEDS ORDERED: OXYTOCIN 10 UNITS/ML VIAL ONE ×2 (21:47→22:27)
[2021-02-19] MEDS ORDERED: PHENYLEPHRINE HCL 10 MG/1 ML SINGLE DOSE VIAL ONE (21:47)
[2021-02-19] MEDS ORDERED: SODIUM CHLORIDE 0.9% P/F 10 ML VIAL IJ ONE (21:47)
[2021-02-19] MEDS ORDERED: OXYTOCIN 20 UNITS in 0.9% NS 20 UNIT/1,000 ML INFUS.BAG IV SCH (22:15)
[2021-02-20] MEDS ORDERED: OXYTOCIN 20 UNITS in 0.9% NS 20 UNIT/1,000 ML INFUS.BAG IV ONE (00:18)
[2021-02-20 00:56] LABS: CORD BASE EXCESS -2.6 mmol/L (0-2); CORD HCO3 24.1 mmHg (20-29); CORD PCO2 48.2 mmHg (30-78); CORD pH 7.317 (7.14-7.44)
[2021-02-20 08:20] LABS: HEMATOCRIT 33.3 % (32.4-45.2); HEMOGLOBIN 11.4 GM/dL (10.7-15.3); MCH 31.3 pg (25.7-33.7); MCHC 34.2 g/dl (32.0-36.0); MEAN CELL VOLUME 91.7 fl (80-96); MEAN PLT VOLUME 10.1 fl (7.5-11.1); PLATELET COUNT 194 K/MM3 (134-434); RBC 3.63 M/mm3 (3.60-5.2); RDW 13.9 % (11.6-15.6); WHITE BLOOD COUNT 13.8 K/mm3 (4.0-10.0)
[2021-02-20 08:35] LABS: POC NITRAZINE NEG
[2021-02-20] MEDS ORDERED: ONDANSETRON 4 MG/2 ML VIAL IVPB PRN (09:01)
[2021-02-20] MEDS ORDERED: HYDROmorphone HCL 2 MG TABLET PO PRN (15:20)
[2021-02-20] MEDS ORDERED: oxyCODONE HCL 5 MG TABLET PO PRN ×2 (15:20)
[2021-02-20] MEDS ORDERED: BISACODYL 10 MG SUPP.RECT PR PRN (15:20)
[2021-02-20] MEDS ORDERED: diphenhydrAMINE HCL 25 MG CAPSULE (FP) PO PRN (15:20)
[2021-02-21] MEDS: IBUPROFEN 600 MG TABLET (FP) PO PRN ×2 (06:19→13:57)
[2021-02-21] MEDS: ACETAMINOPHEN 325 MG TABLET (FP) PO PRN ×2 (06:19→13:57)
[2021-02-21] MEDS: SIMETHICONE 80 MG TAB.CHEW (FP) PO PRN ×2 (06:19→13:57)
[2021-02-21 09:06] VITALS: BP 124/68; PULSE 95; TEMP 98
[2021-02-21] MEDS ORDERED: DIPHTH,PERTUSS(ACELL),TET 0.5 ML DISP.SYRIN IM ONE (10:00)
[2021-02-21] MEDS ORDERED: FLU VACCINE (FLULAVAL) PF 60 MCG/0.5 ML SYRINGE 2020-2021 IM ONE (10:00)
[2021-02-21] MEDS ORDERED: SENNOSIDES/DOCUSATE COMBO (SENNA PLUS) TABLET (UD) PO PRN (22:00)
== END 2021-02-21 17:10 | disposition home or self-care (01) | DRG 540 ==
LOC: JDEL 12:25 → JLDR 14:50 → J3W 02-20 01:45
PROVIDERS: ADMIT Obstetrics & Gynecology; ATTEND Obstetrics & Gynecology
PROC: 10D00Z1 Extraction of Products of Conception, Low, Open Approach (ICD-10-PCS; principal; 2021-02-19)
DX: O34.219 Maternal care for unspecified type scar from previous cesarean delivery (principal); O41.03X0 Oligohydramnios, third trimester, not applicable or unspecified; Z3A.39 39 weeks gestation of pregnancy; Z37.0 Single live birth
CPT/HCPCS: 36415; 36600; 80048; 82803; 83986-QW; 85025; 85027; 85610; 85730; 86780; 86850; 86900; 86901; 88307-TC; 90715; C9803; G0008; Q2036; U0003; U0005

== ENCOUNTER 2022-03-16 01:07 | Emergency (ER) | payer OTHER ==
[2022-03-16 01:18] VITALS: BMI 32.2
[2022-03-16] MEDS ORDERED: ONDANSETRON 4 MG/2 ML VIAL IVPUSH ONE (02:21)
[2022-03-16] MEDS ORDERED: FAMOTIDINE 20 MG/50 ML IVPB 20 MG/50 ML MG IVPB ONE (02:21)
[2022-03-16] MEDS ORDERED: SODIUM CHLORIDE 0.9% 500 ML INFUS.BAG IV ONE (02:21)
[2022-03-16] MEDS ORDERED: ACETAMINOPHEN 1000 MG/100 ML BAG IVPB ONE (02:21)
[2022-03-16] MEDS ORDERED: FAMOTIDINE 10 MG/ML VIAL IVPB ONE (02:31)
[2022-03-16] MEDS ORDERED: ONDANSETRON 4 MG/2 ML VIAL ONE (02:31)
[2022-03-16] MEDS ORDERED: ACETAMINOPHEN INJECTION 100 ML IVPB ONE (02:31)
[2022-03-16 02:56] LABS: BASO % 0.3 % (0-2.0); HEMATOCRIT 37.4 % (32.4-45.2); HEMOGLOBIN 12.7 GM/dL (10.7-15.3); LYMPH % 12.8 % (8-40); MCHC 33.9 g/dl (32.0-36.0); MEAN CELL VOLUME 88.3 fl (80-96); MEAN PLT VOLUME 8.1 fl (7.5-11.1); MONO % 4.5 % (3.8-10.2); NEUT % 80.4 % (42.8-82.8); PLATELET COUNT 300 10^3/uL (134-434); RBC 4.24 M/mm3 (3.60-5.2); RDW 12.9 % (11.6-15.6); WHITE BLOOD COUNT 11.3 K/mm3 (4.0-10.0)
[2022-03-16 03:19] LABS: CALCIUM 8.7 mg/dL (8.5-10.1)
[2022-03-16 03:20] LABS: ALBUMIN 3.9 g/dl (3.4-5.0); BLOOD UREA NITROGEN 16.1 mg/dL (7-18); MAGNESIUM 2.2 mg/dL (1.8-2.4)
[2022-03-16 03:23] LABS: CREATININE 0.8 mg/dL (0.55-1.3)
[2022-03-16 03:24] LABS: BILIRUBIN,TOTAL 0.3 mg/dL (0.2-1); TOT PROT 7.2 g/dl (6.4-8.2)
[2022-03-16] MEDS ORDERED: KETOROLAC TROMETHAMINE 30 MG/1 ML VIAL IVPUSH ONE (04:07)
[2022-03-16] MEDS ORDERED: KETOROLAC TROMETHAMINE 30 MG/1 ML VIAL ONE (04:13)
[2022-03-16 04:29] LABS: URINE APPEARANCE CLEAR; URINE BILIRUBIN NEGATIVE (NEGATIVE); URINE COLOR YELLOW; URINE GLUCOSE (UA) NEGATIVE (NEGATIVE); URINE KETONE NEGATIVE (NEGATIVE); URINE LEUK ESTERASE NEGATIVE (NEGATIVE); URINE NITRITE NEGATIVE (NEGATIVE); URINE PROTEIN NEGATIVE (NEGATIVE); URINE UROBILINOGEN 0.2 mg/dL (0.2-1.0)
[2022-03-16 05:09] VITALS: BP 108/64; PULSE 77; TEMP 97.8
== END 2022-03-16 06:07 | disposition home or self-care (01) ==
LOC: JER 01:07
PROC: 3E0333Z Introduction of Anti-inflammatory into Peripheral Vein, Percutaneous Approach (ICD-10-PCS; principal; 2022-03-16)
PROC: 3E033GC Introduction of Other Therapeutic Substance into Peripheral Vein, Percutaneous Approach (ICD-10-PCS; 2022-03-16)
PROC: 3E0333Z Introduction of Anti-inflammatory into Peripheral Vein, Percutaneous Approach (ICD-10-PCS; 2022-03-16)
PROC: 3E033GC Introduction of Other Therapeutic Substance into Peripheral Vein, Percutaneous Approach (ICD-10-PCS; 2022-03-16)
DX: R11.2 Nausea with vomiting, unspecified (principal)
CPT/HCPCS: 36415; 80053; 81003; 83690; 83735; 84703; 85025; 87086; 87186; 93005; 93010; 99285-25